=== PATIENT | female | born 2000 | race Caucasian/White ===

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

== ENCOUNTER 2020-09-11 10:05 | Emergency (ER) | payer OTHER ==
[2020-09-12 15:07] LABS: SARS-CoV-2 NAA Not Detected (Not Detected)
== END 2020-09-11 13:55 | disposition home or self-care (01) ==
LOC: JVIRT 10:05
DX: Z11.52 Encounter for screening for COVID-19 (principal)
CPT/HCPCS: C9803; G2251-GT; Q3014-GT; U0003; U0005